=== PATIENT | male | born 1995 | race Caucasian/White ===

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

== ENCOUNTER 2017-03-06 11:23 | Emergency (ER) | payer MEDICAID ==
[2016-11-07 15:14] VITALS: BMI 30.6
[~2017-03-06 11:23] MED LIST changes: +AUGMENTIN 875-11 TAB PO; +BACTRIM 400-801 TAB PO; +BACTRIM DS TABL1 TAB PO; +ZOFRAN ODT4 MG/UDTAB PO
== END 2017-03-06 15:57 | disposition home or self-care (01) ==
LOC: D.ER 11:23
DX: K94.29 Other complications of gastrostomy (principal)

== ENCOUNTER 2018-08-15 20:50 | Inpatient (IN) | payer MEDICAID ==
[~2018-08-15] VITALS: Ht 177.8 cm; Wt 100.2 kg
[2018-08-15] MEDS ORDERED: SCOPOLAMINE1 EACH TRANSDERM (20:56)
[2018-08-15 21:39] LABS: BASOPHILS 0.1 % (0-2); EOSINOPHILS 0 % (0-7); HEMATOCRIT 46.7 % (42.0-54.0); IMMATURE GRANULOCYTES 0.5 % (0-5); MCH 29.8 pg (26.0-34.0); MCHC 34.3 g/dL (31.0-37.0); MEAN PLATELET VOLUME 8.8 fL (7.4-10.4); NEUTROPHILS 90.4 % (40-80); PLATELET COUNT 282 10x3/uL (130-400); RBC 5.37 10x6/uL (4.20-6.10); RDW 13.4 % (11.5-14.5); WBC 14.9 10x3/uL (4.8-10.8)
[2018-08-15 21:48] LABS: INR 1.2 (0.85-1.17); PROTIME 14.7 SECONDS (11.6-15.0)
[2018-08-15 21:52] VITALS: BP 124/77
[2018-08-15 21:52] LABS: ALBUMIN 3.5 g/dL (3.4-5.0); ALKALINE PHOSPHATASE 63 U/L (46-116); ALT (SGPT) 36 U/L (10-68); BILIRUBIN - TOTAL 0.73 mg/dL (0.2-1.3); CALC OSMOLALITY 296 mosm/kg (275-300); CALCIUM 8.5 mg/dL (8.5-10.1); CARBON DIOXIDE 19.9 mmol/L (21.0-32.0); CHLORIDE - SERUM 111 mmol/L (98-107); CREATININE - SERUM 0.9 mg/dL (0.6-1.3); POTASSIUM - SERUM 3.9 mmol/L (3.5-5.1); SODIUM 147 mmol/L (136-145); UREA NITROGEN 16 mg/dL (7-18); eGFR NON AFRICAN AMERICAN > 90 mL/min (90-120)
[2018-08-15 21:53] LABS: GLUCOSE 179 mg/dL (74-106)
--- NOTE | 2018-08-15 22:20 | NUR ---
HIDE TRIMMER ADVISED THAT THE PATIENT WAS STILL HAVING SOME NAUSEA AND VOMITING WHILE IN CT
[2018-08-15 23:06] LABS: AMYLASE - SERUM 63 U/L (25-115); LIPASE 62 U/L (73-393)
[2018-08-15 23:20] VITALS: BP 126/70
[2018-08-16] VITALS (25 sets, daily range): BP systolic 93–168; BP diastolic 41–98; BMI 39.2
--- NOTE | 2018-08-16 | NUR ---
PATIENT ARRIVED TO ICU ROOM 2312 VIA STRETCHER ACCOMPANIED BY ED STAFF, ALL ICU EQUIPMENT PLACED, PER ICU PROTOCOL. HR RATE IS ELEVATED, WHICH, PER ED REPORT, IS BASELINE, FOR THIS PATIENT. WILL CONTINUE TO MONITOR
--- NOTE | 2018-08-16 01:00 | NUR ---
MOTHER AT BEDSIDE, UPDATE GIVEN, QUESTIONS ANWSWERED, ADMISSION HISTORY COMPLETE
--- NOTE | 2018-08-16 03:00 | NUR ---
RE-ASSESSMENT COMPLETE PER NURSING FLOWSHEET. PATIENT EASILY FALLS BACK TO SLEEP, NO OTHER NEEDS VOICED OR NOTED AT THIS TIME
[2018-08-16 03:12] LABS: BASOPHILS 0.1 % (0-2); EOSINOPHILS 0 % (0-7); HEMATOCRIT 44.9 % (42.0-54.0); HEMOGLOBIN 15.7 g/dL (13.5-17.5); IMMATURE GRANULOCYTES 0.4 % (0-5); LYMPHOCYTES 7.1 % (15-50); MCH 30.8 pg (26.0-34.0); MCV 88.2 fL (80.0-100.0); MEAN PLATELET VOLUME 8.9 fL (7.4-10.4); MONOCYTES 4.6 % (2-11); NEUTROPHILS 87.8 % (40-80); PLATELET COUNT 289 10x3/uL (130-400); RBC 5.09 10x6/uL (4.20-6.10); RDW 13.7 % (11.5-14.5)
[2018-08-16 03:25] LABS: WBC 18.9 10x3/uL (4.8-10.8)
[2018-08-16 03:29] LABS: ALBUMIN 3.3 g/dL (3.4-5.0); ALKALINE PHOSPHATASE 57 U/L (46-116); ALT (SGPT) 34 U/L (10-68); BILIRUBIN - TOTAL 0.97 mg/dL (0.2-1.3); CALC OSMOLALITY 297 mosm/kg (275-300); CALCIUM 8.3 mg/dL (8.5-10.1); CARBON DIOXIDE 18.9 mmol/L (21.0-32.0); CHLORIDE - SERUM 110 mmol/L (98-107); CREATININE - SERUM 0.9 mg/dL (0.6-1.3); GLUCOSE 208 mg/dL (74-106); MAGNESIUM - SERUM 1.5 mg/dL (1.8-2.4); POTASSIUM - SERUM 4.1 mmol/L (3.5-5.1); PROTEIN - SERUM 6.7 g/dL (6.4-8.2); SODIUM 146 mmol/L (136-145); UREA NITROGEN 15 mg/dL (7-18); eGFR NON AFRICAN AMERICAN > 90 mL/min (90-120)
--- NOTE | 2018-08-16 05:00 | NUR ---
PATIENT INDEPENDENTLY REPOSITIONS SELF, NO C/O N/V THUS FAR, WILL CONTINUE TO MONITOR
--- NOTE | 2018-08-16 09:24 | NUR ---
0900 DR DOHERTY ROUNDING ON PATIENT AND CHECKING PROGRESS PT VOICES NO COMPLAINTS
--- NOTE | 2018-08-16 09:35 | NUR ---
0700 PATIENT SLEEPING MOTHER REMAINS AT BEDSIDE EMOTIONAL SUPPORT PROVIDED ASSESSMENT COMPLETE
--- NOTE | 2018-08-16 09:36 | NUR ---
0900 REPOSITIONED IN BED EASILY AWAKENED
--- NOTE | 2018-08-16 12:37 | NUR ---
1100 RESTING QUIETLY NO FEVER NOTED EMESIS BAGS ON BEDSIDE TABLE PROTONIX INFUSION CONTINUES
--- NOTE | 2018-08-16 12:43 | NUR ---
1200 DR MCGRATH AT BEDSIDE SPEAKING WITH PARENTS MOTHER SHOWED CONCERN ABOUT SONS GLUCOSE LEVELS DR MCGRATH ADDED NEW ORDERS INCLUDING BLOOD SUGAR CHECKS AND SLIDING SCALE GREEN BILE EMESIS NOTED COMPAZINE GIVEN IV FOR N,V
--- NOTE | 2018-08-16 13:03 | NUR ---
1300 DR MCGRATH IS OK TO SENT PT TO FLOOR WILL APPROACH PRIMARY FOR ORDERS
--- NOTE | 2018-08-16 18:44 | NUR ---
1500 MOTHER VISITING AT BEDSIDE EMOTIONAL SUPPORT GIVEN.
--- NOTE | 2018-08-16 18:46 | NUR ---
1700 RIGHT HAND WDEMOTOUOS STOPPED IV TO RIGHT HAND WRAPPED WARM BLANKET TO RIGHT HAND.
--- NOTE | 2018-08-16 19:30 | NUR ---
ASSESSMENT COMPLETE PER NURSING FLOWSHEET, PATIENT INDEPENDENTLY REPOSITIONS SELF, NO NEEDS VOICED OR NOTED AT THIS TIME
--- NOTE | 2018-08-16 20:00 | NUR ---
MOTHER AT BEDSIDE, UPDATE GIVEN, QUESTIONS ANSWERED. PHENEGRAN TO BE GIVEN WHEN AVAILABLE, PATIENT ACTIVELY HAVING WRETCHING NAUSEA
--- NOTE | 2018-08-16 21:00 | NUR ---
IV ATTEMPTED MULTIPLE TIMES, WITH VEIN FINDER ASSIST FROM LAB. OBTAINING FLASH OF BLOOD IN IV CATH, BUT WILL NEVER THREAD TO SUCCESSFULLY COMPLETE INSERTION OF IV.
--- NOTE | 2018-08-16 22:00 | NUR ---
WALKED TO ED, REQUESTED ANY AVAILABLE NURSES THAT MIGHT BE AVAILABLE TO ATTEMPT IV FOR THIS PATIENT. CHARGE NURSE, MARCOS STATES THAT SOMEONE WILL COME OVER TO ATTEMPT, IF TIME PERMITS
--- NOTE | 2018-08-16 23:00 | NUR ---
PATIENT SLEEPING, NO APPARENT DISTRESS, PATIENT CONTINUES IN TACHYCARDIA, WHICH IS BASELINE FOR THIS PATIENT, ALL OTHER VSS AT THIS TIME
[2018-08-17] VITALS (12 sets, daily range): BP systolic 105–158; BP diastolic 64–96; Ht 177.8 cm; Wt 100.2 kg
--- NOTE | 2018-08-17 01:00 | NUR ---
PATIENT CONTINUES TO HAVE ACTIVE N/V, PHENEGRAN PREVIOUSLY GIVEN IM, N/V CURRENTLY SUBSIDED MOMENTARILY, WILL CONTINUE TO MONITOR
--- NOTE | 2018-08-17 03:00 | NUR ---
PATIENT SLEEPING, NO APPARENT DISTRESS, CONTINUES WITH INTERMITTENT BOUTS OF N/V, CONTINUOUSLY MONITORING
--- NOTE | 2018-08-17 05:00 | NUR ---
PATIENT CONTINUES WITH ACTIVE N/V, PHENEGRAN GIVEN WHEN AVAILABLE, COOL WASHCLOTHS PROVIDED, CURRENTLY NO ED PERSONEL HAS ARRIVED TO ATTEMPT IV
--- NOTE | 2018-08-17 09:45 | NUR ---
0700 AWAKE HEAVING WITH BILE GREEN EMESIS NOTED UP TO BSC WITH SMALL LIQUID BROWN STOOL. VOIDED IN URINAL
--- NOTE | 2018-08-17 09:47 | NUR ---
0800 PHENERGAN 25MG IM GIVEN FOR VOMITING UPDATE GIVEN TO MOTHER
--- NOTE | 2018-08-17 09:48 | NUR ---
0901 CONSULT FOR VASCULAR ACCESS NURSE AFTER SEVERAL NURSES WEERE UNSUCCESSFUL WITH IV START
--- NOTE | 2018-08-17 11:58 | NUR ---
1100 AWAKENED WITH DRY HEAVES PHENERGAN 25MG IM GIVEN
--- NOTE | 2018-08-17 12:40 | NUR ---
1200 VASCULAR HEALTH WORKERS AT BEDSIDE
--- NOTE | 2018-08-17 13:48 | NUR ---
1300 RESTARTED PROTONIX GTT AND NS GAVE REGLAN MOTHER REMAINS AT BEDSIDE
--- NOTE | 2018-08-17 18:33 | NUR ---
1700 CLEAR LIQUID TRAY SERVED LUKAS WELL
--- NOTE | 2018-08-17 18:33 | NUR ---
1500 C/O REFLUX OBTAINED NEW ORDER FOR CARAFATE
--- NOTE | 2018-08-17 19:12 | NUR ---
REPORT RECEIVED, CARE ASSUMED. INITIAL ASSESSMENT COMPLETED, SEE FLOWSHEET FOR DETAILS. PT IS LAYING IN BED AT THIS TIME WITH EYES OPEN. NO SIGNS OF ACUTE DISTRESS NOTED. WILL CONTINUE TO MONITOR.
--- NOTE | 2018-08-17 21:12 | NUR ---
PT IS RESTING IN BED WITH MOTHER AT BEDSIDE. NO SIGNS OF ACUTE DISTRESS. NO ACUTE CHANGES NOTED. WILL CONTINUE TO MONTIOR.
--- NOTE | 2018-08-17 23:14 | NUR ---
PT IS RESTING IN BED WITH EYES CLOSED AT THIS TIME. NO NEEDS VOICED. NO SIGNS OF ACUTE DISTRESS. WILL CONTINUE TO MONITOR.
--- NOTE | 2018-08-18 01:14 | NUR ---
PT'S IV CAME OUT. 21 GAUGE WAS RESITED TO RIGHT HAND. PT VOICED NO FURTHER NEEDS AT THIS TIME. NO SIGNS OF ACUTE DISTRESS. WILL CONTINUE TO MONITOR.
[2018-08-18 03:00] VITALS: BP 133/93
--- NOTE | 2018-08-18 03:17 | NUR ---
PT IS RESTING IN BED WITH EYES CLOSED AT THIS TIME. NO SIGNS OF ACUTE DISTRESS. WILL CONTINUE TO MONITOR.
[2018-08-18 04:38] LABS: BASOPHILS 0.2 % (0-2); EOSINOPHILS 0.4 % (0-7); HEMATOCRIT 48.1 % (42.0-54.0); HEMOGLOBIN 16.9 g/dL (13.5-17.5); IMMATURE GRANULOCYTES 0.3 % (0-5); LYMPHOCYTES 31.1 % (15-50); MCH 30.5 pg (26.0-34.0); MCHC 35.1 g/dL (31.0-37.0); MCV 86.8 fL (80.0-100.0); MEAN PLATELET VOLUME 8.8 fL (7.4-10.4); MONOCYTES 7.1 % (2-11); NEUTROPHILS 60.9 % (40-80); PLATELET COUNT 292 10x3/uL (130-400); RBC 5.54 10x6/uL (4.20-6.10); RDW 13.1 % (11.5-14.5); WBC 12.3 10x3/uL (4.8-10.8)
[2018-08-18 05:01] LABS: CALC OSMOLALITY 282 mosm/kg (275-300); CALCIUM 8.9 mg/dL (8.5-10.1); CARBON DIOXIDE 24.5 mmol/L (21.0-32.0); CHLORIDE - SERUM 104 mmol/L (98-107); CREATININE - SERUM 0.9 mg/dL (0.6-1.3); POTASSIUM - SERUM 3.2 mmol/L (3.5-5.1); SODIUM 141 mmol/L (136-145); UREA NITROGEN 9 mg/dL (7-18); eGFR NON AFRICAN AMERICAN > 90 mL/min (90-120)
[2018-08-18 05:09] LABS: GLUCOSE 157 mg/dL (74-106)
--- NOTE | 2018-08-18 05:16 | NUR ---
PT IS RESTING IN BED WITH EYES CLOSED AT THIS TIME. NO SIGNS OF ACUTE DISTRESS. WILL CONTINUE TO MONITOR.
[2018-08-18 07:00] VITALS: BP 110/74
--- NOTE | 2018-08-18 07:00 | NUR ---
REC'D REPORT AND RESUMED CARE, SLEEPING AROUSABLE TO VERBAL STIMULI, ORIENTED, FOLLOWS COMMANDS, O2 VIA ROOM AIR, VSS, DENIES PAIN, ASSESSMENT COMPLETED PER FLOWSHEET
--- NOTE | 2018-08-18 08:45 | NUR ---
PREOP MEDS GIVEN PER MAR FLOWSHEET AND ORDERS
[2018-08-18 09:00] VITALS: BP 125/78
--- NOTE | 2018-08-18 09:30 | NUR ---
INCONTINENT OF DIARRHEA STOOL, MOTHER AT BEDSIDE, GOT PATIENT OOB TO BEDSIDE COMMODE, 200 CC DIARRHEA STOOL TO WANG EMPTIED, SKIN CARE AND LINEN CHANGE COMPLETED
[2018-08-18 10:00] VITALS: BP 119/77
[2018-08-18 11:00] VITALS: BP 120/80
--- NOTE | 2018-08-18 11:23 | NUR ---
REPORT RECEIVED FROM RADHA SALEH. PT REPORTS PAIN 8/10 ON ABDOMEN. NO N/V NOTED AT THIS TIME. CURRENT TEMP 98.4. AWAITING EGD TO BE COMPLETED. WILL CONTINUE TO MONITOR.
--- NOTE | 2018-08-18 12:00 | NUR ---
PT HAVING NAUSEA AND VOMITING. SMALL AMOUNT OF YELLOW EMESIS NOTED AT THIS TIME. SCHEDULED REGLAN GIVEN. PHENERGAN IM GIVEN PER ORDERS.
--- NOTE | 2018-08-18 12:16 | NUR ---
BLOOD GLUCOSE 151 AT THIS TIME. NO INSULIN GIVEN. PT IS NPO.
--- NOTE | 2018-08-18 12:33 | NUR ---
DR. WOOD NOTIFIED THAT POTASSIUM WAS 3.2 THIS MORNING. ORDERED PT TO BE PLACED ON ELECTROLYTE PROTOCOL AND TO INSET A MILINE CATHETER.
[2018-08-18 15:00] VITALS: BP 102/62
--- NOTE | 2018-08-18 15:00 | NUR ---
DR BACA HERE FOR EVAL AND EGD COMPLETED, FINDINGS WERE DISCUSSED WITH MOTHER, NO OTHER ACUTE CHANGES FROM PREVIOUS ASSESSMENT
--- NOTE | 2018-08-18 17:18 | NUR ---
40 MEQ KCL PO PER E LYTE PROTOCAL GIVEN IN APPLE JUICE, K+3.2
--- NOTE | 2018-08-18 17:51 | MORECARE ---
CASE MANAGEMENT DISCHARGE SUMMARY PATIENT: WALLACE ALMONTE UNIT: [id number] ADM DATE: 08/15/18 AGE: 23 : [birth year] SEX: M ROOM/BED: D.2312 AUTHOR: ROEJLIO AMAYA PHYSICIAN: REFERRING PHYSICIAN: FOX PEREZ MD DATE OF SERVICE: 08/18/18 Discharge Plan Patient Name: WALLACE ALMONTE [facility] : 1995 Planned Disposition: Home Anticipated Discharge Date: Discharge Date: Expected LOS: Initial Reviewer: [email or web address] Initial Review Date: 08/16/2018 Generated: 08/18/18 6:50 pm DCPIA - Discharge Planning Initial Assessment Updated by [email or web address]: Ramona Liu on 08/18/18 5:50 pm * Is the patient Alert and Oriented? No * How many steps to enter\exit or inside your home? * PCP Dr. Martinez? in [place] * Pharmacy [place] * Preadmission Environment Home with Family * ADLs Total Dependent * Other Equipment denies any needs for medical equipment * List name and contact numbers for known caregivers / representatives who currently or will assist patient after discharge: Steffanie [facility] - [phone] * Verbal permission to speak to the caregivers and representatives has been obtained from the patient. N/A * Community resources currently utilized None * Additional services required to return to the preadmission environment? No * Can the patient safely return to the preadmission environment? Yes * Has this patient been hospitalized within the prior 30 days at any hospital? No Patient Name: WALLACE ALMONTE Page [id number] at 1751 All edits/amendments must be made on the electronic document DICTATION DATE: 08/18/181749 FAMILY COACH: JADE 08/18/181749 RPT#: [id number] DC DATE: STATUS: ADM IN [facility] [address] [place] [address] END OF REPORT
--- NOTE | 2018-08-18 17:58 | MORECARE ---
CASE MANAGEMENT DISCHARGE SUMMARY PATIENT: WALLACE ALMONTE UNIT: [id number] ADM DATE: 08/15/18 AGE: 23 : [birth year] SEX: M ROOM/BED: D.2312 AUTHOR: JOSE LUISDOC PHYSICIAN: REFERRING PHYSICIAN: FOX PEREZ MD DATE OF SERVICE: 08/18/18 Discharge Plan Patient Name: WALLACE ALMONTE Facility: [facility]:[place] : 1995 Planned Disposition: Home Anticipated Discharge Date: Discharge Date: Expected LOS: Initial Reviewer: [email or web address] Initial Review Date: 08/16/2018 Generated: 08/18/18 6:58 pm Comments DCP- Discharge Planning Updated by [email or web address]: Ramona Liu on 08/18/18 4:[address] Patient Name: WALLACE ALMONTE Admission Status: ER Accout number: [id number] Admission Date: 08-15-2018 : 1995 Admission Diagnosis:GASTROPARESIS Attending: FOX PEREZ Current LOS: 3 Anticipated DC Date: Planned Disposition: Home Primary Insurance: [place] [employer] Discharge Planning Comments: CM met with patient and his mother (Steffanie) at bedside. Patient is non-verbal Steffanie answered all intake questions. She plans on patient returning to their home upon discharge. She denies any discharge needs. CM will continue to follow and assist as needed with discharge planning / needs. Cook Pickled Meat: Ramona Liu DCPIA - Discharge Planning Initial Assessment Updated by [email or web address]: Ramona Liu on 08/18/18 5:50 pm * Is the patient Alert and Oriented? No * How many steps to enter\exit or inside your home? * PCP Dr. Martinez? in [place] * Pharmacy [facility] * Preadmission Environment Home with Family * ADLs Total Dependent * Other Equipment denies any needs for medical equipment * List name and contact numbers for known caregivers / representatives who currently or will assist patient after discharge: Steffanie Cruz - Mother - [phone] * Verbal permission to speak to the caregivers and representatives has been obtained from the patient. N/A * Community resources currently utilized None * Additional services required to return to the preadmission environment? No * Can the patient safely return to the preadmission environment? Yes * Has this patient been hospitalized within the prior 30 days at any hospital? No Last DP export: 08/18/18 4:51 p Patient Name: WALLACE ALMONTE Page [phone] at 1758 All edits/amendments must be made on the electronic document DICTATION DATE: 08/18/181757 WHEY DEPARTMENT OPERATOR: JADE 08/18/181757 RPT#: [id number] DC DATE: STATUS: ADM IN [facility] [address] [place] [address] END OF REPORT
--- NOTE | 2018-08-18 18:20 | NUR ---
CALLED TO ROOM, REQUESTING PHENEGRAN POST MEAL, 25 MG IM GIVEN PER MAR FLOWSHEET
--- NOTE | 2018-08-18 19:21 | NUR ---
REPORT RECEIVED, CARE ASSUMED. INITIAL ASSESSMENT COMPLETED, SEE FLOWSHEET FOR DETAILS. PT IS RESTING IN BED WITH EYES CLOSED AT THIS TIME. NO SIGNS OF ACUTE DISTRESS. WILL CONTINUE TO MONITOR.
--- NOTE | 2018-08-18 21:21 | NUR ---
PT RESTING IN BED WITH EYES CLOSED AT THIS TIME. NO NEEDS VOICED. NO SIGNS OF ACUTE DISTRESS. WILL CONTINUE TO MONITOR.
--- NOTE | 2018-08-18 23:26 | NUR ---
PT RESTING IN BED WITH EYES CLOSED. NO SIGNS OF ACUTE DISTRESS. WILL CONTINUE TO MONITOR.
--- NOTE | 2018-08-19 01:26 | NUR ---
PT RESTING IN BED WITH EYES CLOSED. NO SIGNS OF ACUTE DISTRESS. WILL CONTINUE TO MONITOR.
[2018-08-19 03:00] VITALS: BP 120/78
--- NOTE | 2018-08-19 03:11 | NUR ---
PT RESTING IN BED WITH EYES CLOSED. PT VOICES NO NEEDS AT THIS TIME. NO SIGNS OF ACUTE DISTRESS. WILL CONTINUE TO MONITOR.
--- NOTE | 2018-08-19 05:11 | NUR ---
PT REPOSITIONED FOR COMFORT. NO SIGNS OF ACUTE DISTRESS. WILL CONTINUE TO MONITOR.
[2018-08-19 07:00] VITALS: BP 146/93
--- NOTE | 2018-08-19 07:20 | NUR ---
SHIFT REPORT RECEIVED. PT RESTING IN BED WITH EYES CLOSED. AROUSES TO VOICE. HAS RIGHT HAND 22G PIV WITH NS AT 100ML/HR. 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 HR 117. BP 146/93. NO FEVER NOTED. REPORTS TENDERNESS ON ABDOMEN. 375ML OF URINE NOTED AT THIS TIME. SHIFT ASSESSMENT COMPLETED. SAFETY MEASURES IN PLACE. WILL CONTINUE TO MONITOR.
--- NOTE | 2018-08-19 09:41 | NUR ---
NUTRITION F/U PT WITH FAMILY AT BEDSIDE. PT TOLERATING DIABETIC DIET WITH ~25% INTAKE BREAKFAST. WILL CONTINUE TO PROVIDE DIET, MONITOR INTAKE. RD FOLLOWING
[2018-08-19 11:00] VITALS: BP 130/88
[2018-08-19] MEDS ORDERED: PROTONIX40 MG PO (14:19)
--- NOTE | 2018-08-19 15:01 | NUR ---
PIV ON R-HAND DC'D PER ORDERS. PT WILL BE GOING HOME TODAY.
--- NOTE | 2018-08-20 15:56 | MORECARE ---
CASE MANAGEMENT DISCHARGE SUMMARY PATIENT: WALLACE ALMONTE UNIT: [id number] ADM DATE: 08/15/18 AGE: 23 : [birth year] SEX: M ROOM/BED: D.2312 AUTHOR: JOSE LUISDOC PHYSICIAN: REFERRING PHYSICIAN: FOX PEREZ MD DATE OF SERVICE: 08/20/18 Discharge Plan Patient Name: WALLACE ALMONTE Facility: [facility]:[place] : 1995 Planned Disposition: Home Anticipated Discharge Date: Discharge Date: 08/19/2018 Expected LOS: Initial Reviewer: [email or web address] Initial Review Date: 08/16/2018 Generated: 08/20/18 4:55 pm Comments DCP- Discharge Planning Updated by [email or web address]: Ramona Liu on 08/18/18 4:[address] Patient Name: WALLACE ALMONTE Admission Status: ER Accout number: [id number] Admission Date: 08-15-2018 : 1995 Admission Diagnosis:GASTROPARESIS Attending: FOX PEREZ Current LOS: 3 Anticipated DC Date: Planned Disposition: Home Primary Insurance: [place] [employer] Discharge Planning Comments: CM met with patient and his mother (Steffanie) at bedside. Patient is non-verbal Steffanie answered all intake questions. She plans on patient returning to their home upon discharge. She denies any discharge needs. CM will continue to follow and assist as needed with discharge planning / needs. Technical Support Manager: Ramona Liu DCPIA - Discharge Planning Initial Assessment Updated by [email or web address]: Ramona Liu on 08/18/18 5:50 pm * Is the patient Alert and Oriented? No * How many steps to enter\exit or inside your home? * PCP Dr. Martinez? in [place] * Pharmacy [place] * Preadmission Environment Home with Family * ADLs Total Dependent * Other Equipment denies any needs for medical equipment * List name and contact numbers for known caregivers / representatives who currently or will assist patient after discharge: Steffanie Cruz - Mother - [phone] * Verbal permission to speak to the caregivers and representatives has been obtained from the patient. N/A * Community resources currently utilized None * Additional services required to return to the preadmission environment? No * Can the patient safely return to the preadmission environment? Yes * Has this patient been hospitalized within the prior 30 days at any hospital? No Last DP export: 08/18/18 4:58 p Patient Name: WALLACE ALMONTE Page [phone] at 1556 All edits/amendments must be made on the electronic document DICTATION DATE: 08/20/181554 ALMOND HULLER: JADE 08/20/181554 RPT#: [id number] DC DATE:08/19/18 STATUS: DIS IN [facility] [address] [place] [address] END OF REPORT
== END 2018-08-19 15:06 | disposition home or self-care (01) | DRG 391 ==
LOC: D.ER 20:50 → D.ICU 23:02
PROVIDERS: Family Medicine; Internal Medicine Gastroenterology; ADMIT Emergency Medicine; ATTEND Emergency Medicine
PROC: 0DB78ZX Excision of Stomach, Pylorus, Via Natural or Artificial Opening Endoscopic, Diagnostic (ICD-10-PCS; principal; 2018-08-18 07:00)
DX: K31.84 Gastroparesis (principal); K22.11 Ulcer of esophagus with bleeding; Q92.8 Other specified trisomies and partial trisomies of autosomes; E66.9 Obesity, unspecified; E83.42 Hypomagnesemia; Z68.38 Body mass index [BMI] 38.0-38.9, adult; D72.829 Elevated white blood cell count, unspecified; R50.9 Fever, unspecified; R11.2 Nausea with vomiting, unspecified; K29.70 Gastritis, unspecified, without bleeding; K31.89 Other diseases of stomach and duodenum